=== PATIENT | male | born 1995 | race Two or more races ===

== ENCOUNTER 2020-05-17 18:50 | Emergency (ER) | payer SELFPAY ==
[~2020-05-17] VITALS: Ht 170.2 cm; Wt 87.2 kg
[2020-05-17 19:17] VITALS: BP 122/66
--- NOTE | 2020-05-17 20:14 | NUR ---
ALL RESULTS ARE BACK AT THIS TIME. CHART UP FOR RECHECK.
== END 2020-05-17 20:49 | disposition home or self-care (01) ==
LOC: ED 20:33
DX: S39.012A Strain of muscle, fascia and tendon of lower back, initial encounter (principal); S80.01XA Contusion of right knee, initial encounter; V49.09XA Driver injured in collision with other motor vehicles in nontraffic accident, initial encounter; Y93.89 Activity, other specified; Y92.410 Unspecified street and highway as the place of occurrence of the external cause; Y99.8 Other external cause status
CPT/HCPCS: 72110; 99284

== ENCOUNTER 2020-10-31 06:54 | Emergency (ER) | payer SELFPAY ==
[~2020-10-31] VITALS: Ht 170.2 cm; Wt 84.4 kg
--- NOTE | 2020-10-31 07:20 | NUR ---
PT C/O NOT BEING ABLE TO KEEP ANYTHING DOWN FOR 2 DAYS. PT HAS NAUSEA AND VOMITING. DENIES DIARRHEA. PAIN IS LOWER ABD BILATERALLY. PAIN 7/10. PT ALSO HAS BEEN DIZZY WITH THE SYMPTIOMS BUT BELIEVES ITS BEACAUSE HE IS DEHYDRATED. PT DENIES ANY BLOOD IN STOOL OR VOMIT.
[2020-10-31] MEDS ORDERED: ONDANSETRON ODT 4 MG ONE (07:28)
[2020-10-31] MEDS ORDERED: ONDANSETRON ODT 4 MG PO ONE (07:30)
[2020-10-31 07:51] LABS: BASOPHILS % (AUTO) 1 % (0-1); EOSINOPHILS % (AUTO) 1 % (1-7); LYMPHOCYTES % (AUTO) 36 % (22-44); MEAN CORPUSCULAR HEMOGLOBIN 29.5 pg (27.5-34.5); MEAN CORPUSCULAR HGB CONC 34.7 g/dL (33.2-36.2); MEAN PLATELET VOLUME 8.6 fL (7.4-10.4); MONOCYTES % (AUTO) 7 % (2-9); NEUTROPHILS % (AUTO) 56 % (42-75); PLATELET COUNT 244 x10^3/uL (130-400); RED BLOOD COUNT 5.52 x10^6/uL (4.38-5.82); RED CELL DISTRIBUTION WIDTH 13.6 % (9.4-14.8)
[2020-10-31 08:02] LABS: ALBUMIN 4.3 g/dL (3.4-5.0); ANION GAP 8 mmol/L (5-15); CALCIUM 9.1 mg/dL (8.5-10.1); CHLORIDE 109 mmol/L (98-107)
--- NOTE | 2020-10-31 08:02 | NUR ---
PT STATES HE HAS SOME RELIEF WITH THE MEDICATION
[2020-10-31 08:05] LABS: ALANINE AMINOTRANSFERASE 24 U/L (12-78); ALKALINE PHOSPHATASE 96 U/L (45-117); CREATININE 0.98 mg/dL (0.7-1.3); TOTAL PROTEIN 8.4 g/dL (6.4-8.2)
[2020-10-31 08:13] LABS: MD NO
[2020-10-31 08:40] LABS: MICROSCOPIC AUTO
--- NOTE | 2020-10-31 10:47 | NUR ---
PT RESTING ON ED BED WITH CELL PHONE IN HAND. ALL NEEDS MET AT THIS TIME. VSS.
--- NOTE | 2020-10-31 11:14 | NUR ---
THROUGHPUT: NOTIFIED PSYCH FARM EQUIPMENT OPERATOR FOR CONSULT
--- NOTE | 2020-10-31 11:58 | NUR ---
PT SPEAKING WITH MENTAL HEALTH SUPERVISOR [employer]
[2020-10-31 12:37] VITALS: BP 146/84
== END 2020-10-31 12:39 | disposition home or self-care (01) ==
LOC: ED 08:35
DX: F43.21 Adjustment disorder with depressed mood (principal); R11.2 Nausea with vomiting, unspecified; R10.30 Lower abdominal pain, unspecified
CPT/HCPCS: 36415; 80053; 81001; 85025; 87086; 99283; Q0162; Q0177